=== PATIENT | female | born 1970 | race Caucasian/White ===

== ENCOUNTER → 2019-07-25 15:29 | Outpatient (CLI) | payer OTHER, SELFPAY ==
[2019-07-25 17:26] LABS: Anion Gap 3 (5-15); BUN 17 mg/dL (7-18); BUN/Creat Ratio 17.5 RATIO (10-20); Calcium,Total 8.8 mg/dL (8.5-10.1); Chloride 109 mmol/L (98-107); Creatinine, Serum 0.97 mg/dL (0.55-1.02); EST Glomerular Filtration Rate 65 mL/min (>60); Est Glom Filt Rate - Afr Amer 79 mL/min (>60); Glucose 103 mg/dL (74-106); Potassium 3.3 mmol/L (3.5-5.1); Sodium Level 138 mmol/L (136-145)
== END ==
PROVIDERS: Family Provider Family Medicine; PCP Family Medicine
DX: I10 Essential (primary) hypertension (principal)
CPT/HCPCS: 36415; 80048

== ENCOUNTER 2025-11-05 17:26 | Emergency (ER) | payer OTHER, SELFPAY ==
[2025-11-05 17:27] VITALS: BP 156/105; PULSE 105; RESP 16; TEMP 36; O2SAT 98; BMI 27.8
--- NOTE | 2025-11-05 17:35 | EKG12_ITS ---
Test Reason : CP Blood Pressure : */* mmHG Vent. Rate : 90 BPM Atrial Rate : 90 BPM P-R Int : 162 ms QRS Dur : 86 ms QT Int : 366 ms P-R-T Axes : 36 -24 28 degrees QTcB Int : 447 ms Normal sinus rhythm Minimal voltage criteria for LVH, may be normal variant ( R in aVL ) Borderline ECG Confirmed by Emery Pimentel ([id number]), videotape editor JOEL QUEZADA ([id number]) on 11/11/2025 11:13:28 AM Referred By: TA/CYNDY Confirmed By: Emery Pimentel
--- NOTE | 2025-11-05 17:37 | ED.VIS.CHEST ---
HPI History of Present Illness Chief Complaint: Chest Pain [facility] Medical History (Updated 11/05/25 @ 17:37 by Betty Lopez) Cardiomyopathy Home Medications ?Medication ?Instructions ?Recorded ?Last Taken ?Type ascorbic acid (vitamin C) 250 mg 250 mg PO DAILY 05/23/24 11/04/25 History tablet cholecalciferol (vitamin D3) 25 25 mcg PO DAILY 05/23/24 11/04/25 History mcg (1,000 unit) capsule losartan 100 mg tablet 100 mg PO QDAY 05/23/24 11/05/25 History magnesium citrate 100 mg tablet 200 mg PO DAILY 05/23/24 11/04/25 History rosuvastatin 20 mg tablet 20 mg PO QHS 05/23/24 11/05/25 History multivitamin (Daily Multi-Vitamin 1 tab PO DAILY 11/05/25 11/04/25 History tablet) norethindrone acetate 5 mg tablet 5 mg PO DAILY 11/05/25 11/05/25 History vitamin B complex 1 cap PO DAILY 11/05/25 11/04/25 History Allergy/AdvReac Type Severity Reaction Status Date / Time lisinopril Allergy cough Verified 11/05/25 17:29 Family History Mother Cancer Father Cancer Surgical History Hx of removal of cyst Social History (Updated 11/05/25 @ 17:37 by Betty Lopez) household members: spouse and children housing: house Smoking Status: Never smoker alcohol intake: current EXAM Physical Exam Const Vital Signs: 11/05/25 17:27 11/05/25 17:37 11/05/25 18:26 Temperature 96.8 F L Temperature Source Temporal Pulse Rate 105 H 83 Respiratory Rate 16 16 Respiratory Effort Normal Non-Labored Blood Pressure 156/105 H 153/98 H Blood Pressure Mean 122 116 Pulse Ox 98 98 Oxygen Delivery Method Room Air 11/05/25 19:00 11/05/25 20:00 Temperature Temperature Source Pulse Rate 77 82 Respiratory Rate 16 20 H Respiratory Effort Blood Pressure 154/70 H 168/106 H Blood Pressure Mean 98 126 Pulse Ox 99 97 Oxygen Delivery Method Room Air MDM MDM MDM Narrative Medical decision making narrative: HISTORY OF PRESENT ILLNESS: Chief complaint: Chest pain 55-year-old female history of Takotsubo's cardiomyopathy, hypertension, hyperlipidemia, CAD, MS, endometriosis presents with chest pain. She notes this occurred 30 minutes prior to arrival she notes elevated blood pressure. She notes a dull ache. She reports sour stomach. The pain is pressure-like. It is located left side of her chest. She notes it radiates to her left arm. Does not associate with exertion or deep breath. She denies any bleeding diathesis. The patient denies recent surgery in the last 4 weeks or immobilization in the last 3 days, denies previous diagnosis of DVT or PE, hemoptysis, unilateral leg swelling or malignancy with treatment the last 6 months or palliative. No estrogen use noted. Patient denies sudden onset of pain, no tearing sensation, no migratory symptoms, no new numbness, weakness or loss of sensation. Patient denies family history or personal history of Connective tissue disorders (Marfan's Syndrome, Isabela Danlos etc) REVIEW OF SYSTEMS: Pertinent positives: Chest pain, cough Pertinent negatives: Shortness of breath, fever, leg swelling, syncope PHYSICAL EXAM: Nursing triage notes reviewed, Vital signs reviewed Constitutional: please see mdm HENT: MMM Eyes: Pupils equal round and reactive to light, Extraocular muscles intact Neck: No stridor, no JVD, full neck ROM Lungs: Clear to auscultation, No wheezing or rales. No increased work of breathing, no conversational dyspnea, no accessory muscle use, no nasal flaring. No respiratory distress noted Heart: Regular rate and rhythm, No murmurs, No rubs and No gallops, 2+ distal pulses (radial, femoral, posterior tibial) in all extremities Abdomen: Soft, there is no tenderness, rigidity, rebound or guarding, no obvious peritoneal signs, no palpable pulsatile abdominal masses, no auscultated abdominal bruit : No CVAT Extremities: No edema Neuro: No new focal neurological deficits, cranial nerves II through XII intact, 5/5 strength in all present extremities. Intact sensation to light touch in all present extremities, 2+ reflexes bilateral patella tendons. Skin: No rash or lesions noted MEDICAL DECISION MAKING: Chief Complaint: please see HPI External records reviewed: Reviewed CT scan from 2012 Factors affecting care: As per HPI Social determinants of health: Denies illicit drugs History obtained from others: none Consults: none [facility] [place] Narrative: Patient was initially hypertensive with blood pressure 156/105, tachycardic with a heart rate of 105 otherwise afebrile nontoxic-appearing. Saturating 98% on room air. Exam without focal cardiopulmonary abnormalities. No stigmata of VTE, CHF or aortic dissection. I considered the following differential diagnosis: ACS, arrhythmia, anemia, electro disturbance, heart failure, pneumonia, PE I considered pulm embolism however the patient is low risk Wells score. She had no stigmata of VTE on exam. As such I do not obtain D-dimer CT scan at this time. I considered aortic dissection of the patient had no stigmata of aortic dissection or stroke factors that make her high risk. Her blood pressure slightly elevated was 155/95 in the room. Low suspicion for aortic dissection I obtained a broad lab and imaging work to further determine if the patient was suffering from a life-threatening etiology. Patient rechecked a baby aspirin prior to arrival so no immediate treatments were given. ALL IMAGES (IF OBTAINED) HAVE BEEN PERSONALLY REVIEWED AND INTERPRETED BY MYSELF. EKG with normal sinus rhythm rate of 90, left ax deviation, normal intervals, no STEMI, no arrhythmia, no sign of right heart strain CBC without leukocytosis, severe anemia, no thrombocytopenia. BMP without evidence of significant electrolyte abnormalities, no anion gap, no acute kidney injury. High-sensitivity troponin is negative, no evidence of myocardial ischemia BNP shows no signs of volume overload or increased ventricular stress Delta troponin negative Upon reassessment pt chest pain-free. Initial tachycardia had resolved. The synthesis of the patient's history, physical exam, labs, images suggest no acute abnormalities. Patient essentially was ruled out for ACS based on [facility]'s high-sensitivity troponin protocol. She is appropriate for discharge home to undergo further evaluation as an outpatient. Strict return precautions were discussed. Follow-up arranged. The patient and/or family, caregivers express understanding. The patient and/or family, caregivers agrees with the plan. Shared decision making: I will have a discussion with the patient and or visitors regarding risk/benefits of further testing or admission. They will be made aware of of the risk/benefits inherent in this decision they will be given the opportunity to voice understanding. Total critical care time today provided was at least 0 minutes. This excludes separately billable procedures. Critical care time (if documented) is secondary to the patient having high probability of clinically significant/life threatening deterioration in the patient's condition which required my urgent intervention. Impression: 1. Chest pain 2. History of Takotsubo's cardiomyopathy Dispo: Discharge home This note was generated with getupp dictation software. It may contain incorrect words, spelling, and punctuation that were not noted in review of the chart prior to signing. Lab Data Labs: Laboratory Results - last 24 hr 11/05/25 11/05/25 17:37 19:32 WBC 9.7 RBC 4.29 Hgb 13.6 Hct 40.0 MCV 93.2 MCH 31.7 MCHC 34.0 RDW Std Deviation 44.7 H RDW Coeff of [place] 13.1 Plt Count 253 MPV 10.2 Immature Gran % (Auto) 0.400 Neut % (Auto) 54.8 Lymph % (Auto) 34.2 [place] % (Auto) 6.6 Eos % (Auto) 3.4 Baso % (Auto) 0.6 Absolute Neuts (auto) 5.3 Absolute Lymphs (auto) 3.33 Nucleated RBC % 0 Sodium 140 Potassium 3.5 Chloride 107 H Carbon Dioxide 21.3 Anion Gap 12 BUN 18 Creatinine 0.89 Estim Creat Clear Calc 82.56 Est GFR (MDRD) Non-Af 77 BUN/Creatinine Ratio 19.8 Glucose 160 H Calcium 9.6 Troponin T High Sens < 6 Troponin T Hi Sens 2 Hr 11 NT pro BNP II 139 Radiography Diagnostic Testing: Clinical Impression(s) from Imaging Studies Chest X-Ray 11/05/25 17:50 IMPRESSION: No focal consolidations Reading Location: [facility] Discharge Plan Triage Chief Complaint: Chest Pain ED Provider: Jose Manuel Napier Dx/Rx/DC Orders Instructions: ED Chest Pain, Noncardiac Prescriptions: No Action rosuvastatin 20 mg tablet 20 mg PO QHS losartan 100 mg tablet 100 mg PO QDAY cholecalciferol (vitamin D3) 25 mcg (1,000 unit) capsule 25 mcg PO DAILY ascorbic acid (vitamin C) 250 mg tablet 250 mg PO DAILY Rx Instructions: unsure of dose magnesium citrate 100 mg tablet 200 mg PO DAILY norethindrone acetate 5 mg tablet 5 mg PO DAILY multivitamin [Daily Multi-Vitamin] Tablet 1 tab PO DAILY vitamin B complex Capsule 1 cap PO DAILY Primary Care Provider: Josse Serra SPIRITUAL MINISTER Referrals: Yazan Rowe MD [Med Staff - Active Staff, Cardiology] Rudolph Aj MD [Non-Staff, Family Practice] Activity Restrictions/Additional Instructions: Thank you for trusting us with your care today! Your labs and images were unremarkable for signs of heart damage. Please take Tylenol (2 pills, 650 mg), ibuprofen (2 pills, 400 mg) every 6 hours as needed for pain and fever control. Please return to the emergency department if your symptoms change or worsen. Please follow with your primary care physician and/or cardiology for further outpatient evaluation and management. Print Language: Yi Disposition Disposition: Home, Self Care Discharge Date/Time: 11/05/25 20:48
--- NOTE | 2025-11-05 17:50 | RAD_ITS ---
PROCEDURE: CHEST 1 VIEW (PORTABLE) 11/05/2025 REASON FOR EXAM: CHEST PAIN TECHNIQUE: Frontal view of the chest. FINDINGS: No focal consolidation. No pleural effusion or pneumothorax. Cardiac silhouette is within normal limits. No acute fractures. RAD/Chest 1 View (Portable) IMPRESSION: No focal consolidations Reading Location: [facility]
[2025-11-05 18:03] LABS: Hematocrit 40.0 % (37-47); Hemoglobin 13.6 g/dL (12.0-15.0); Immature Granulocytes Count 0.040 X10^3/uL (0.0-0.0); Mean Corp Hgb Conc 34.0 g/dL (32-36); Mean Corpuscular Volume 93.2 fL (81-99); Mean Platelet Vol. 10.2 fl (6.2-12.0); NRBC Flagged by Analyzer 0 % (0-5); Platelet Count 253 K/mm3 (150-450); RBC Distribution Width CV 13.1 % (11.6-14.6); RBC Distribution Width SD 44.7 fl (35.1-43.9); Red Blood Count 4.29 M/mm3 (4.2-5.4); White Blood Count 9.7 K/mm3 (4.4-11.0)
[2025-11-05 18:25] LABS: Anion Gap 12 (7-18); BUN 18 mg/dL (4-19); BUN/Creat Ratio 19.8 RATIO (10-20); Calcium,Total 9.6 mg/dL (7.6-11.0); Carbon Dioxide 21.3 mmol/L (20.0-29.0); Chloride 107 mmol/L (96-106); Estimated Creatinine Clearance 82.56 ml/min (50-250); Glucose 160 mg/dL (70-99); Potassium 3.5 mmol/L (3.5-5.1); Pro- Brain NATRIURETIC PEPTIDE 139 pg/mL (<=900); Troponin T High Sensitivity < 6 ng/L (<=14)
[2025-11-05 18:26] VITALS: BP 153/98; PULSE 83; RESP 16; O2SAT 98
[2025-11-05 19:00] VITALS: BP 154/70; PULSE 77; RESP 16; O2SAT 99
[2025-11-05] MEDS: Lidocaine 2% Viscous15 ML UDC 15 ML PO (19:49)
[2025-11-05] MEDS: Mag /Aluminum/Simeth WCH UDC 30 ML ORAL.SUSP PO (19:49)
[2025-11-05 20:00] VITALS: BP 168/106; PULSE 82; RESP 20; O2SAT 97
[2025-11-05 20:01] LABS: Troponin T High Sens 2 HR 11 ng/L (<=14)
[2025-11-05 20:47] VITALS: BP 154/102; PULSE 75; RESP 17; TEMP 36.7; O2SAT 99
== END 2025-11-05 20:48 | disposition home or self-care (01) ==
PROVIDERS: Emergency Provider Emergency Medicine; PCP Nurse Practitioner Family; Visit Provider Emergency Medicine
DX: R07.9 Chest pain, unspecified (principal); I25.10 Atherosclerotic heart disease of native coronary artery without angina pectoris; I10 Essential (primary) hypertension; E78.5 Hyperlipidemia, unspecified; Z79.899 Other long term (current) drug therapy
CPT/HCPCS: 71045; 80048; 83880; 84484; 85025; 87631; 93005; 99285; A4216